=== PATIENT | male | born 1965 | race Two or more races ===

== ENCOUNTER 2020-04-08 17:42 | Emergency (ER) | payer OTHER ==
[~2020-04-08] VITALS: Ht 172.7 cm; Wt 92.1 kg
[2020-04-08] MEDS ORDERED: KETOROLAC 30 MG/1 ML ONE (18:10)
[2020-04-08] MEDS ORDERED: ONDANSETRON ODT 4 MG ONE (18:10)
[2020-04-08] MEDS ORDERED: HYDROcodone/APAP 5/325 TABLET ONE (18:11)
--- NOTE | 2020-04-08 18:26 | NUR ---
PT HAS CO FLANK PAIN. PT STATES HE THINKS HE HAS KIDNEY STONE. UA COLLECTED. MEDICATED PER ORDERS
[2020-04-08] MEDS ORDERED: KETOROLAC 30 MG/1 ML IM ONE (18:30)
[2020-04-08] MEDS ORDERED: ONDANSETRON ODT 4 MG PO ONE (18:30)
[2020-04-08] MEDS ORDERED: HYDROcodone/APAP 5/325 TABLET PO ONE (18:30)
[2020-04-08 18:36] LABS: MICROSCOPIC AUTO
[2020-04-08 18:41] LABS: BASOPHILS # (AUTO) 0.05 x10^3/uL (0-0.1); BASOPHILS % (AUTO) 1 % (0-1); EOSINOPHILS # (AUTO) 0.25 x10^3/uL (0-0.4); EOSINOPHILS % (AUTO) 3 % (1-7); LYMPHOCYTES # (AUTO) 2.94 x10^3/uL (1-3.4); LYMPHOCYTES % (AUTO) 31 % (22-44); MD NO; MEAN CORPUSCULAR HGB CONC 33.9 g/dL (33.2-36.2); MEAN CORPUSCULAR VOLUME 97.3 fL (81-97); MEAN PLATELET VOLUME 7.1 fL (7.4-10.4); MONOCYTES # (AUTO) 0.71 x10^3/uL (0.2-0.8); MONOCYTES % (AUTO) 8 % (2-9); NEUTROPHILS # (AUTO) 5.42 x10^3/uL (1.8-6.8); NEUTROPHILS % (AUTO) 58 % (42-75); PLATELET COUNT 333 x10^3/uL (130-400); RED BLOOD COUNT 4.46 x10^6/uL (4.38-5.82)
--- NOTE | 2020-04-08 18:48 | NUR ---
REPORT TO ROSEMARIE
[2020-04-08 18:50] LABS: ALANINE AMINOTRANSFERASE 86 U/L (12-78); ANION GAP 6 mmol/L (5-15); CALCIUM 8.4 mg/dL (8.5-10.1); CHLORIDE 112 mmol/L (98-107); CREATININE 0.84 mg/dL (0.7-1.3)
[2020-04-08 18:53] LABS: ALKALINE PHOSPHATASE 123 U/L (45-117); BILIRUBIN,TOTAL 0.5 mg/dL (0.2-1.0); TOTAL PROTEIN 7.4 g/dL (6.4-8.2)
--- NOTE | 2020-04-08 19:13 | NUR ---
PT RESTING QUIETLY AT THIS TIME, REPORTS PAIN AND NAUSEA RESOLVED AT THIS TIME.
[2020-04-08 19:44] VITALS: BP 137/86
== END 2020-04-08 19:45 | disposition home or self-care (01) ==
LOC: ED 18:50
DX: R10.9 Unspecified abdominal pain (principal); R31.9 Hematuria, unspecified; R39.15 Urgency of urination
CPT/HCPCS: 36415; 74176; 80053; 81001; 85025; 87086; 96372; 99284; J1885; Q0162